=== PATIENT | female | born 1945 | race African-American/Black ===

== ENCOUNTER 2018-07-27 13:05 | Emergency (ER) | payer MEDICARE, BC ==
[~2018-07-27] VITALS: Ht 167.6 cm; Wt 66.0 kg
[~2018-07-27 13:05] MED LIST: ASPIRIN; ATENOLOL
[2018-07-27] MEDS ORDERED: SODIUM CHLORIDE 0.9% 1,000 ML IV ONE (13:45)
[2018-07-27 14:02] LABS: BASOPHILS % 0.9 % (0.0-2.0); EOSINOPHILS % 1.9 % (0.0-5.0); HEMATOCRIT. 38.3 % (36.0-48.0); HEMOGLOBIN. 12.8 g/dL (12.0-16.0); LYMPHOCYTES % 32.7 % (20.0-50.0); MEAN CORPUSCULAR HEMOGLOBIN 31.8 pg (28.0-32.0); MEAN CORPUSCULAR VOLUME 95.1 fL (81.0-99.0); MEAN PLATELET VOLUME 7.9 fl (7.4-10.4); NEUTROPHILS % 55.5 % (40.0-76.0); PLATELET 227 x1000/uL (130-400); RED BLOOD CELL COUNT 4.03 mill/uL (4.2-5.4); RED CELL DISTRIBUTION WIDTH 13.6 % (11.6-14.6)
[2018-07-27 14:08] LABS: CHLORIDE 105 mEq/L (98-107)
[2018-07-27 14:18] LABS: T4 FREE 1.19 ng/dL (0.76-1.46)
[2018-07-27 14:55] LABS: CLARITY URINE CLOUDY (CLEAR); COLOR URINE YELLOW (YELLOW); KETONES URINE TRACE (NEGATIVE); LEUKOCYTE ESTERASE URINE 2+ (NEGATIVE); NITRITE URINE POSITIVE (NEGATIVE); OCCULT BLOOD URINE NEGATIVE (NEGATIVE); PH URINE 7.5 (4.5-8.0); PROTEIN URINE 1+ (NEGATIVE); SPECIFIC GRAVITY URINE 1.014 (1.005-1.030); UROBILINOGEN URINE 0.2 E.U./dL (0.2-1.0)
[2018-07-27] MEDS ORDERED: CEFTRIAXONE 1 G PREMIX 50 ML IV ONE (16:15)
[2018-07-27 17:42] VITALS: BP 118/70
== END 2018-07-27 17:48 | disposition home or self-care (01) ==
LOC: ER 13:05
DX: N39.0 Urinary tract infection, site not specified (principal); R55 Syncope and collapse; R00.1 Bradycardia, unspecified; I10 Essential (primary) hypertension; E03.9 Hypothyroidism, unspecified; Z96.659 Presence of unspecified artificial knee joint; Z90.89 Acquired absence of other organs; Z88.5 Allergy status to narcotic agent
CPT/HCPCS: 36415; 71045; 80053; 81003; 83880; 84439; 84443; 84484; 85025; 87077; 87086; 87186; 93005; 96361; 96365; 99284; J0696; J7030